=== PATIENT | female | born 1990 | race Caucasian/White ===

== ENCOUNTER 2021-05-17 18:48 | Emergency (ER) | payer OTHER ==
[~2021-05-17] VITALS: Ht 170.2 cm; Wt 75.0 kg
[2021-05-17 19:12] VITALS: BP 125/85
--- NOTE | 2021-05-17 19:55 | PHYS DOC ---
Past History Past Medical History: No Pertinent History Past Surgical History: No Surgical History Alcohol Use: None Drug Use: None General Adult EDM: Chief Complaint: ANKLE PROBLEM HPI: HPI: 30-year-old female patient presents to the emergency department complaining of left ankle pain after she tripped and fell down the stairs. She reports that she inverted her left ankle during the fall. She reports the injury occurred several hours ago. She has been able to walk on ankle with pain. She denies any further pain anywhere else. Denies any abnormal sensations or lack of motor function of the left ankle. Denies color changes. Ice is making the pain better. She is currently breast-feeding. Review of Systems: Review of Systems: Constitutional: Denies fever or chills. Eyes: Denies change in vision, pain. HENT: Denies congestion or sore throat. Respiratory: Denies cough or shortness of breath. Cardiovascular: Denies chest pain or edema. GI: Denies abdominal pain, nausea. : Denies change in urination, dysuria. Musculoskeletal: Left ankle pain Skin: Denies rash, skin change. Neurologic: Denies headache, focal weakness. Psychiatric: Denies depression or anxiety. All other systems reviewed as negative except for what was mentioned in the HPI. Allergies: Allergies: Allergies Coded Allergies Type Severity Reaction Last Updated Verified No Known Drug Allergies 05/17/21 No Physical Exam: PE: Constitutional: No acute distress, non-toxic appearance. Neck: Normal range of motion, supple. Cardiovascular: Heart rate regular rhythm. 2+ dorsalis pedis pulses, capillary refill less than 2 seconds bilateral lower extremities Lungs & Thorax: No respiratory distress, symmetrical expansion. Abdomen: Soft, no tenderness Skin: Warm, dry, no overlying skin changes over the lower extremities. Back: No Lumbar or Sacral tenderness to palpation. Extremities: Soft tissue swelling over the left ankle. Tenderness to the lateral and medial malleolus of the left ankle. [No tenderness to the feet, leg, bilaterally]. [Appropriate range of motion. Neurologic: Alert and oriented X 3. Normal motor function of the lower extremities bilaterally. Normal sensory function of the lower extremities. No focal deficits noted. GCS 15. Psychologic: Affect normal, judgment normal, mood normal. Current Patient Data: Vital Signs: Vital Signs Date Time Temp Pulse Resp B/P (MAP) Pulse Ox O2 Delivery O2 Flow Rate FiO2 05/17/21 19:12 99.2 98 18 125/85 97 Room Air Radiology/Procedures: Radiology/Procedures: Exam: Left ankle 3 views INDICATION: Ankle pain TECHNIQUE: Frontal, lateral and oblique views of the right ankle Comparisons: None FINDINGS: Soft tissue swelling overlying the lateral malleolus. Bone mineralization is normal. No acute or healed fractures. Joint spaces are well-maintained. IMPRESSION: Soft tissue swelling overlying the lateral malleolus without underlying osseous abnormality identified. Electronically signed by: Tyron Carrion MD (05/17/2021 8:28 PM) [] Heart Score: C/O Chest Pain: No Course & Med Decision Making: Course & Med Decision Making X-ray is within normal limits, patient has ankle sprain, will discharge with rice protocol Departure Departure: Impression: Primary Impression: Left ankle sprain Disposition: HOME / SELF CARE / HOMELESS Condition: STABLE Referrals: ADITYA HOLLIS DO (PCP) Patient Instructions: Ankle Sprain, [id number] Additional Instructions: You were seen in the emergency department for a musculoskeletal problem that will likely get better over time. You may utilize something called the "RICE" protocol (Rest, Ice, Compresses, Elevation) to help alleviate your pain: ? Hold off on doing intense exercise that may make the pain worse. Sometimes gentle stretching can provide relief, but be careful to avoid further injury. It is important to perform gentle range of motion exercises to prevent stiff joints and chronic pain. ? Use ice packs over the affected area to help decrease your pain. Ice can work as a numbing agent over your painful area. For the first 24 hours, apply ice 2-4 times per day for a maximum 15-20 minutes each time. Ice should be in a plastic bag. ? You may use warm compresses to help improve blood flow and decrease swel ling. Alternating with ice packs and warm compresses works well. ? You may elevate the affected area to help improve drainage and reduce swelling, which will also help your pain. FLORECITA RANDOLPH DO May 17, 2021 19:54
[2021-05-17] MEDS ORDERED: ACETAMINOPHEN 500 MG TABLET PO ONE (20:00)
--- NOTE | 2021-05-17 20:31 | RAD ---
Exam: Left ankle 3 views INDICATION: Ankle pain TECHNIQUE: Frontal, lateral and oblique views of the right ankle Comparisons: None FINDINGS: Soft tissue swelling overlying the lateral malleolus. Bone mineralization is normal. No acute or heal ed fractures. Joint spaces are well-maintained. IMPRESSION: Soft tissue swelling overlying the lateral malleolus without underlying osseous abnormality identifie d. Electronically signed by: Tyron Carrion MD (05/17/2021 8:28 PM) [facility]
== END 2021-05-17 20:50 | disposition home or self-care (01) ==
LOC: ER 18:48
DX: S93.402A Sprain of unspecified ligament of left ankle, initial encounter (principal); W10.8XXA Fall (on) (from) other stairs and steps, initial encounter; Y93.89 Activity, other specified; Y92.89 Other specified places as the place of occurrence of the external cause; Y99.8 Other external cause status
CPT/HCPCS: 73610; 99283